=== PATIENT | female | born 1940 | race Caucasian/White ===

== ENCOUNTER 2024-04-26 11:10 | Inpatient (IN) ==
[2024-04-26 11:28] LABS: ABS Lymphocytes 0.5 10^3/uL (1.0-4.8); ABS Monocytes 0.3 10^3/uL (0.0-0.9); ABS Neutrophils 4.5 10^3/uL (1.5-7.6); Hematocrit 35.6 % (35-45); Hemoglobin 12.8 g/dL (11.5-14.3); Lymphocyte % 9.9 %; Mean Corpuscular Hemoglobin 31.6 pg (27-33); Mean Corpuscular Volume 87.7 fL (80-97); Mean Platelet Volume 7.4 fL (7.5-11.2); Nucleated Red Blood Cells % 0.1 %/100WBC (0.0-0.8); Platelet Count 294 10^3/uL (150-450); Red Blood Count 4.06 10^6/uL (3.63-4.92); Red Cell Distribution Width 12.8 % (12-17); White Blood Count 5.3 10^3/uL (3.8-11.8)
[2024-04-26] MEDS: Iodixanol (CONTRAST) 320 MG/ML 100 ML SDV IV ONE (11:31)
[2024-04-26 11:49] LABS: Activated Partial Thrombo Time 25.9 seconds (26.0-38.0); INR 1.06 (0.85-1.14)
[2024-04-26 12:09] LABS: Albumin/Globulin Ratio 1.6 (1-3); Calcium 8.1 mg/dL (8.6-10.3); Creatinine, Serum 0.62 mg/dL (0.51-0.95); Direct Bilirubin 0.2 mg/dL (0.03-0.18); Globulin 2.5 g/dL (2-4); HDL Cholesterol 49.3 mg/dL; Indirect Bilirubin 1.3 mg/dL (0.3-1.0); Potassium 3.9 mmol/L (3.5-5.0); Total Bilirubin 1.5 mg/dL (0.2-1.0); Total Protein 6.5 g/dL (6.4-8.9); eGFR CKD-EPI 88.3 (>60)
[2024-04-26] MEDS: Lactated Ringers 1000 ml BAG 1,000 ML IV ONE (12:13)
[2024-04-26] MEDS: Enoxaparin 40 MG/0.4 ML SYR SUBCUT SCH (13:42)
[2024-04-26 13:56] LABS: TSH Ultra Thyroid Stim Horm 0.72 mcIU/mL (0.34-5.60)
[2024-04-26] MEDS ORDERED: Dextrose 50% Syringe 50 ml 25 GM/50 ML SYRINGE IV PUSH PRN (14:16)
[2024-04-26] MEDS: Ondansetron 4 mg VIAL 2 MG/ML 2 ml VIAL ONE (16:54)
[2024-04-26] MEDS: Ondansetron 4 mg VIAL 2 MG/ML 2 ml VIAL IV PRN (16:54)
[2024-04-26 17:40] LABS: Calcium 7.9 mg/dL (8.6-10.3); Creatinine, Serum 0.42 mg/dL (0.51-0.95); Potassium 3.9 mmol/L (3.5-5.0)
[2024-04-26 22:23] LABS: Calcium 7.8 mg/dL (8.6-10.3); Creatinine, Serum 0.52 mg/dL (0.51-0.95); Potassium 3.7 mmol/L (3.5-5.0); eGFR CKD-EPI 92.1 (>60)
[2024-04-27 03:22] LABS: Calcium 7.6 mg/dL (8.6-10.3); Creatinine, Serum 0.51 mg/dL (0.51-0.95); Potassium 3.9 mmol/L (3.5-5.0); eGFR CKD-EPI 92.6 (>60)
[2024-04-27 06:30] LABS: Urine Creatinine Concentration 94.36 mg/dL (20.00-320.00)
[2024-04-27 09:46] LABS: ABS Monocytes 0.8 10^3/uL (0.0-0.9); ABS Neutrophils 4.1 10^3/uL (1.5-7.6); ABS Nucleated RBC 0.01 10^3/ul; Eosinophil % 0.3 %; Hematocrit 30.3 % (35-45); Hemoglobin 11.2 g/dL (11.5-14.3); Lymphocyte % 16.2 %; Mean Corpuscular Hemoglobin 31.8 pg (27-33); Mean Corpuscular Hgb Conc 36.9 g/dL (31-36); Mean Corpuscular Volume 86.1 fL (80-97); Mean Platelet Volume 7.7 fL (7.5-11.2); Nucleated Red Blood Cells % 0.2 %/100WBC (0.0-0.8); Platelet Count 260 10^3/uL (150-450); Red Blood Count 3.52 10^6/uL (3.63-4.92); Red Cell Distribution Width 12.6 % (12-17); White Blood Count 5.9 10^3/uL (3.8-11.8)
[2024-04-27 10:27] LABS: Calcium 7.8 mg/dL (8.6-10.3); Creatinine, Serum 0.5 mg/dL (0.51-0.95); Magnesium 1.4 mg/dL (1.9-2.7); Potassium 3.7 mmol/L (3.5-5.0)
[2024-04-27] MEDS: SODIUM CHLORIDE 3% IV ONE (11:01)
[2024-04-27] MEDS: HYPERTONIC IV ONE (11:01)
[2024-04-27] MEDS: Magnesium Sulfate 2 gm BAG 2 GM/50 ML BAG IVPB ONE (12:34)
[2024-04-27] MEDS: Potassium EFFERVES 25 meq TAB PO ONE (12:56)
[2024-04-27 13:52] LABS: Calcium 7.7 mg/dL (8.6-10.3); Creatinine, Serum 0.54 mg/dL (0.51-0.95); Potassium 3.6 mmol/L (3.5-5.0); eGFR CKD-EPI 91.3 (>60)
[2024-04-27 16:59] LABS: Calcium 7.3 mg/dL (8.6-10.3); Creatinine, Serum 0.4 mg/dL (0.51-0.95); Potassium 2.9 mmol/L (3.5-5.0); eGFR CKD-EPI 98.1 (>60)
[2024-04-27 18:51] LABS: Calcium 5.5 mg/dL (8.6-10.3); Creatinine, Serum 0.37 mg/dL (0.51-0.95); Potassium 2.7 mmol/L (3.5-5.0)
[2024-04-27 21:05] LABS: Anion Gap 9 mmol/L (2-16); Blood Urea Nitrogen 11 mg/dL (6-24); CO2 Carbon Dioxide 21 mmol/L (22-32); Chloride 93 mmol/L (101-111); Creatinine, Serum 0.55 mg/dL (0.51-0.95); Glucose 110 mg/dL (70-100); Sodium 123 mmol/L (135-145); eGFR CKD-EPI 90.9 (>60)
[2024-04-27 22:00] LABS: Calcium 7.8 mg/dL (8.6-10.3); Creatinine, Serum 0.53 mg/dL (0.51-0.95); Potassium 3.8 mmol/L (3.5-5.0); eGFR CKD-EPI 91.7 (>60)
[2024-04-28 01:17] LABS: Calcium 8.1 mg/dL (8.6-10.3); Creatinine, Serum 0.61 mg/dL (0.51-0.95); eGFR CKD-EPI 88.7 (>60)
[2024-04-28 04:35] LABS: ABS Monocytes 0.7 10^3/uL (0.0-0.9); ABS Neutrophils 3.2 10^3/uL (1.5-7.6); Eosinophil % 0.2 %; Hematocrit 31.9 % (35-45); Hemoglobin 11.7 g/dL (11.5-14.3); Lymphocyte % 20.5 %; Mean Corpuscular Hemoglobin 31.8 pg (27-33); Mean Corpuscular Hgb Conc 36.5 g/dL (31-36); Mean Corpuscular Volume 87.1 fL (80-97); Mean Platelet Volume 7.6 fL (7.5-11.2); Platelet Count 284 10^3/uL (150-450); Red Blood Count 3.66 10^6/uL (3.63-4.92); Red Cell Distribution Width 12.8 % (12-17)
[2024-04-28 05:10] LABS: Creatinine, Serum 0.58 mg/dL (0.51-0.95); Phosphorus 2.3 mg/dL (2.5-5.0); Potassium 3.9 mmol/L (3.5-5.0); eGFR CKD-EPI 89.7 (>60)
[2024-04-28] MEDS: D5W 500 ml BAG 500 ML IV SCH ×2 (05:25→09:40)
[2024-04-28 05:27] LABS: Urine Appearance Clear; Urine Bilirubin Negative (Negative); Urine Blood Negative (Negative); Urine Color Light-Yellow; Urine Glucose Negative (Negative); Urine Ketones Trace (Negative); Urine Nitrite Negative (Negative); Urine Protein Negative (Negative); Urine Specific Gravity 1.005 (1.002-1.030); Urine Urobilinogen Negative (Negative)
[2024-04-28 08:34] LABS: Urine Bacteria Absent /HPF (Absent); Urine Red Blood Cell Absent /HPF (0-Trace); Urine Squamous Epithelial Cell Present /HPF (Absent); Urine White Blood Cell 2+(11-20/hpf) /HPF (0-Trace)
[2024-04-28] MEDS: Potassium Phosphate IV 10 MMOL in NS 0.9% 250 ml 250 ML IVPB ONE (09:18)
[2024-04-28 11:12] LABS: Anion Gap 6 mmol/L (2-16); Blood Urea Nitrogen 10 mg/dL (6-24); CO2 Carbon Dioxide 22 mmol/L (22-32); Calcium 7.6 mg/dL (8.6-10.3); Chloride 98 mmol/L (101-111); Creatinine, Serum 0.45 mg/dL (0.51-0.95); Glucose 193 mg/dL (70-100); Sodium 126 mmol/L (135-145); eGFR CKD-EPI 95.4 (>60)
[2024-04-28 18:38] LABS: Anion Gap 7 mmol/L (2-16); Blood Urea Nitrogen 13 mg/dL (6-24); CO2 Carbon Dioxide 22 mmol/L (22-32); Chloride 98 mmol/L (101-111); Creatinine, Serum 0.49 mg/dL (0.51-0.95); Glucose 159 mg/dL (70-100); Sodium 127 mmol/L (135-145); eGFR CKD-EPI 93.5 (>60)
[2024-04-29 04:36] LABS: ABS Lymphocytes 1.2 10^3/uL (1.0-4.8); ABS Monocytes 0.8 10^3/uL (0.0-0.9); ABS Neutrophils 4.8 10^3/uL (1.5-7.6); Eosinophil % 0.4 %; Hematocrit 32.1 % (35-45); Hemoglobin 11.6 g/dL (11.5-14.3); Lymphocyte % 17.3 %; Mean Corpuscular Hemoglobin 31.6 pg (27-33); Mean Corpuscular Hgb Conc 36.2 g/dL (31-36); Mean Corpuscular Volume 87.3 fL (80-97); Mean Platelet Volume 7.3 fL (7.5-11.2); Nucleated Red Blood Cells % 0.1 %/100WBC (0.0-0.8); Platelet Count 317 10^3/uL (150-450); Red Blood Count 3.67 10^6/uL (3.63-4.92); Red Cell Distribution Width 12.7 % (12-17); White Blood Count 6.8 10^3/uL (3.8-11.8)
[2024-04-29 05:14] LABS: Creatinine, Serum 0.51 mg/dL (0.51-0.95); Magnesium 1.9 mg/dL (1.9-2.7); Phosphorus 2.3 mg/dL (2.5-5.0); Potassium 4.1 mmol/L (3.5-5.0); eGFR CKD-EPI 92.6 (>60)
[2024-04-30 02:29] LABS: Calcium 8.4 mg/dL (8.6-10.3); Creatinine, Serum 0.58 mg/dL (0.51-0.95); Potassium 4.2 mmol/L (3.5-5.0); eGFR CKD-EPI 89.7 (>60)
[2024-04-30 07:00] LABS: ABS Eosinophils 0.1 10^3/uL (0.0-0.5); ABS Lymphocytes 1.6 10^3/uL (1.0-4.8); ABS Monocytes 0.8 10^3/uL (0.0-0.9); ABS Neutrophils 5.9 10^3/uL (1.5-7.6); Eosinophil % 0.8 %; Hematocrit 34.5 % (35-45); Hemoglobin 12.2 g/dL (11.5-14.3); Lymphocyte % 19.5 %; Mean Corpuscular Hemoglobin 31.4 pg (27-33); Mean Corpuscular Hgb Conc 35.4 g/dL (31-36); Mean Corpuscular Volume 88.9 fL (80-97); Mean Platelet Volume 7.5 fL (7.5-11.2); Platelet Count 348 10^3/uL (150-450); Red Blood Count 3.88 10^6/uL (3.63-4.92); Red Cell Distribution Width 13.1 % (12-17); White Blood Count 8.4 10^3/uL (3.8-11.8)
[2024-04-30 07:14] LABS: Calcium 8.5 mg/dL (8.6-10.3); Creatinine, Serum 0.53 mg/dL (0.51-0.95); Potassium 4.2 mmol/L (3.5-5.0); eGFR CKD-EPI 91.7 (>60)
[2024-04-30 14:09] VITALS: BP 120/62
[2024-04-30] MEDS ORDERED: Aspirin EC 81 mg TAB.EC (enteric coated) PO SCH (21:00)
== END 2024-04-30 17:08 | disposition home or self-care (01) | DRG 640 ==
LOC: ED 11:10 → EDHOLD 12:59 → ICU 13:33 → MED 04-29 22:14
PROVIDERS: ADMIT Internal Medicine; ATTEND Internal Medicine